=== PATIENT | female | born 1940 | race Caucasian/White ===

== ENCOUNTER 2019-02-03 16:51 | Inpatient (IN) | payer MEDICARE, OTHER ==
[~2019-02-03] VITALS: Ht 167.6 cm; Wt 114.8 kg
[~2019-02-03 16:51] MED LIST: ADVAIR 100-501 EACH INH; CEFUROXIME250 MG PO; FUROSEMIDE40 MG PO; HYDROCODON-ACE1 EACH PO; LOSARTAN POTASS25 MG PO; OMEPRAZOLE20 M1 PO; PREDNISONE10 MG PO; WARFARIN SODIUM2 MG PO
[2019-02-03] MEDS ORDERED: IPRATROPIUM BROMIDE 0.02% 2.5 ML NEB NEB STA (16:59)
[2019-02-03] MEDS ORDERED: ALBUTEROL SULF 0.083% NEB SOLN 3 ML NEB NEB STA ×2 (16:59→20:32)
[2019-02-03] MEDS ORDERED: SODIUM CHLORIDE FLUSH 10 ML SYR INJ PRN ×2 (17:00→19:00)
[2019-02-03] MEDS ORDERED: NITROGLYCERIN 2% OINT 1 GM PKT TOP ONE (17:15)
[2019-02-03] MEDS ORDERED: ACETAMINOPHEN 325 MG TAB PO NR (17:30)
[2019-02-03] MEDS ORDERED: FUROSEMIDE INJ 10 MG/ML 4 ML VIAL IV NR (17:30)
--- NOTE | 2019-02-03 17:45 | Diagnostic Imaging Report ---
EXAMINATION: CHEST SINGLE (PORTABLE) COMPARISON: None INDICATION: Shortness of breath on exertion ^SOB ^[id number] ^1725 DISCUSSION: Frontal view of the chest obtained at 1726 hours. HEART AND MEDIASTINUM: The heart is mildly enlarged. The aorta is tortuous. Pulmonary veins are mildly prominent. LINES: None. LUNGS: The lungs are diffusely hyperinflated suggestive of small airways disease. No pneumonia or pulmonary edema. PLEURA: No pleural effusion or pneumothorax. BONES AND SOFT TISSUES: No focal osseous lesion. The soft tissues are normal. IMPRESSION: Pulmonary hyperinflation suggestive of small airways disease. Mild cardiomegaly and pulmonary venous hypertension. Signed by: Dr. Guru Zee MD on 02/03/2019 5:42 PM
[2019-02-03] MEDS ORDERED: ASPIRIN 81 MG CHEW TAB PO ONE (18:00)
[2019-02-03 18:11] LABS: ALANINE AMINOTRANSFERASE 28 IU/L (0-55); ALBUMIN 3.7 g/dL (3.5-5.0); ALBUMIN/GLOBULIN RATIO 1.2 (0.8-2.0); ALKALINE PHOSPHATASE 92 IU/L (40-150); BLOOD UREA NITROGEN 11 mg/dL (7-26); BUN/CREATININE RATIO 13 (6-25); CALCIUM 9.5 mg/dL (8.4-10.2); CARBON DIOXIDE 18 mmol/L (22-29); CHLORIDE 106 mmol/L (98-107); CREATINE KINASE 182 IU/L (29-168); CREATININE, SERUM 0.86 mg/dL (0.57-1.11); EST GLOMERULAR FILTRATION RATE > 60 ML/MIN (60-); GLUCOSE 162 mg/dL (74-118); SODIUM 136 mmol/L (136-145)
--- OUTSIDE RECORDS SUMMARY | 2019-02-03 19:42 | XMS REPORT ---
Author Author [facility] Address Unknown Phone Unavailable Care Team Providers Care Field Cane Scaler Helper Name Role Phone Sharyn WILSON Unavailable Unavailable Problems This patient has no known problems. Allergies, Adverse Reactions, Alerts This patient has no known allergies or adverse reactions. Medications This patient has no known medications. Results Test Description Test Time Test Comments Text Results Atomic Results Result Comments CHEST SINGLE (PORTABLE) 2019-02-03 17:40:00 [facility] [address] [address] Patient Name: ROBYN GONZALEZ MR #: [id number] : 1940 Age/Sex: 78/F Req #: [id number] Adm Physician: Ordered by: DANIELE WILSON MD Report #: [id number] Location: ER Room/Bed: Procedure: [id number] DX/CHEST SINGLE (PORTABLE) Exam Date: 02/03/19 Exam Time: 1725 REPORT STATUS: Signed EXAMINATION: CHEST SINGLE (PORTABLE) COMPARIS ON: None INDICATION: Shortness of breath on exertion SOB [id number] 1725 DISCUSSION: Frontal view of the chest obtained at 1726 hours. HEART AND MEDIASTINUM: The heart is mildly enlarged. The aorta is tortuous. Pulmonary veins are mildly prominent. LINES: None. LUNGS: The lungs are diffusely hyperinflated suggestive of small airways disease. No pneumonia or pulmonary edema. PLEURA: No pleural effusion or pneumothorax. BONES AND SOFT TISSUES: No focal osseous lesion. The soft tissues are normal. IMPRESSION: Pulmonary hyperinflation suggestive of small airways disease. Mild cardiomegaly and pulmonary venous hypertension. Signed by: Dr. Caty Zee MD on 02/03/2019 5:42 PM Dictated By: CATY ZEE MD 41 Transcribed By: MASNI on 02/03/191741 COPY TO: DANIELE WILSON MD
[2019-02-03 20:25] LABS: BASOPHILS # (AUTO) 0.1 (0.0-0.1); BASOPHILS % 0.5 % (0.0-1.0); EOSINOPHILS % 0.1 % (0.0-6.0); HEMATOCRIT 40.6 % (34.2-44.1); HEMOGLOBIN 13.6 g/dL (12.0-16.0); LYMPHOCYTES # (AUTO) 0.5 (1.0-3.2); LYMPHOCYTES % 5.3 % (18.0-39.1); MEAN CORPUSCULAR HEMOGLOBIN 31.3 pg (28-32); MEAN CORPUSCULAR HGB CONC 33.5 g/dL (31-35); MEAN CORPUSCULAR VOLUME 93.5 fL (81-99); MONOCYTES # (AUTO) 0.9 (0.2-0.8); MONOCYTES % 9.3 % (4.4-11.3); NEUTROPHILS # (AUTO) 7.8 (2.1-6.9); NEUTROPHILS % 84.5 % (38.7-80.0); PLATELET COUNT 213 x10e3/uL (140-360); RED BLOOD COUNT 4.34 x10e6/uL (3.6-5.1); RED CELL DISTRIBUTION WIDTH 12.4 % (11.7-14.4)
[2019-02-03 20:40] VITALS: BP 132/77
[2019-02-03] MEDS ORDERED: IPRATROPIUM BROMIDE 0.02% 2.5 ML NEB NEB ONE (20:45)
[2019-02-03 20:46] LABS: CREATINE KINASE MB 2.5 ng/mL (0-5.0)
[2019-02-03 21:08] VITALS: BP 132/77
--- NOTE | 2019-02-03 21:40 | NUR ---
PATIENT ARRIVED TO THE UNIT VIA STRETCHER ACCOMPANIED BY HER . RECEIVED REPORT FROM ASHWIN, ER NURSE. PATIENT ARRIVED TO THE UNIT WITH EXPIRATORY WHEEZING AND REQUESTING TO HAVING A PURIWICK PLACED BECAUSE SHE NEEDS TO PEE DUE TO THE LASIX SHE RECEIVED IN ER. PATIENT IS IN NO PAIN. PATIENT IS A&OX3.
[2019-02-03 22:00] VITALS: BP 132/77
--- NOTE | 2019-02-03 22:50 | NUR ---
CALLED AND TALKED TO DR. ARDON, WHO IS COVERING FOR DR. Merced LAU. TOLD DR. ARDON THAT THERE WAS A ONE TIME ORDER FOR NEB TREATMENT AND THE PATIENT IS HAVING EXPIRATORY WHEEZING AND THE WHEEZING CAN BE HEARD WITH AND WITHOUT THE STETHOSCOPE. DR. ARDON ORDERED A CONSULT TO DR. WILSON AND ALUTEROL Q12 PRN AND ALBUTEROL Q4 SCHEDULE.
[2019-02-03] MEDS ORDERED: ALBUTEROL SULF 0.083% NEB SOLN 3 ML NEB NEB PRN (23:00)
[2019-02-03] MEDS: ALBUTEROL SULF 0.083% NEB SOLN 3 ML NEB NEB SCH (23:00)
--- NOTE | 2019-02-03 23:30 | NUR ---
CALLED AND TALKED TO DR. WILSON ABOUT THE CONSULT FOR THE PATIENT AND THE ORDERS DR. ARDON GAVE. DR. WILSON SAID HE WILL COME SEE THE PATIENT TONIGHT
[2019-02-04] VITALS (8 sets, daily range): BP systolic 109–182; BP diastolic 57–80
[2019-02-04] MEDS ORDERED: POTASSIUM CHLORIDE 20 MEQ TAB CR PO STA (00:39)
--- NOTE | 2019-02-04 00:41 | NUR ---
pulmonary [id number] thanks.
--- NOTE | 2019-02-04 03:03 | Consultation ---
DATE OF CONSULTATION: 02/03/2019 Pulmonary Medicine Consult REASON FOR REFERRAL: Shortness of breath. HISTORY OF PRESENT ILLNESS: Ms. Coe is a pleasant 78-year-old female with shortness of breath, onset for two days. Worse with exertion. While it was getting worse for a couple days, the has been noticing a chronic worsening over the last year. The patient came to the emergency room. In the ER, labs were done including a BNP level of 589. Troponin 0.063, CK-MB 2.50. Chest x-ray with some venous hyperemia, mild hyperinflation. Over the first hospital day, the patient not noticeably better at all. Therefore, I am consulted. The patient reportedly has asthma for 10 years that was diagnosed. She does not have any subjective improvement to bronchodilators that she knows of. Some allergies. No GERD. No known FREDERICK. The patient at baseline not on any active respiratory medications. The patient's baseline exercise tolerance is two rooms distance, limited by dyspnea. She uses a walker. 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 The patient denies dysphagia or speaking difficulty. Hypertension. Diabetes. Weakness/debility. Hysterectomy. Allergies. MEDICATIONS: Medication list reviewed per the chart record. ALLERGIES: SULFA. SOCIAL HISTORY: No smoking. No drinking. No drugs. The patient was a school bus mechanic for 28 years. FAMILY HISTORY: Noncontributory. REVIEW OF SYSTEMS: GENERAL: Generally, no weight changes. OPHTHALMOLOGIC: No double vision. ENT: No mouth ulcers. ENDOCRINE: No known thyroid disease. PULMONARY: No hemoptysis. CARDIAC: No VA. GI: No diarrhea. : No blood in urine. NEUROLOGIC: No seizures. DERMATOLOGIC: No rashes. OBJECTIVE: VITAL SIGNS: Afebrile, vital signs noted and reviewed per the chart record. Upon presentation, her blood pressure is 169/82 with a heart rate of 59 into the hospital. GENERAL: No acute distress, alert and oriented x3. HEENT: Normocephalic and atraumatic. NECK: Supple. Throat midline. LUNGS: Bilateral air entry is moderate, clear. CARDIOVASCULAR: S1, S2. No murmurs, rubs, or gallops. ABDOMINAL: Soft and nontender. EXTREMITIES: No clubbing, no cyanosis. There is 1+ edema to the legs. INTEGUMENT: No rash. No purpura. LABORATORY DATA: Nine white count, 41 hematocrit, and 213 platelets. Eighteen bicarbonate, 11 BUN, and 0.86 creatinine. LFTs mostly unremarkable. IMPRESSION AND PLAN: 1. Treat for congestive heart failure exacerbation, acute. Ejection fraction unknown for now. 2. Abnormal chest radiography, possible pneumonitis. 3. Chronic bronchitis. 4. Reported asthma. 5. Obesity, possible obstructive sleep apnea or obesity hypoventilation. 6. History of cerebrovascular accident with no definite dysphagia nor aphasia per patient report in those instances. 7. Junctional rhythm, suspect atrial fibrillation underlying. 8. Hypertension. 9. Diabetes. 10. Hyperlipidemia. 11. Debility/weakness. Continue diuresis, repeat chest x-ray serially to ensure improvement. Reasonable to withhold antibiotics and see if there is quick radiographic improvement or else may give a trial of antibiotics. Cardiac medications per Cardiology. ejection fraction. Check thyroid screening, lipid screening. Bronchodilators, like steroids. Ensure she can expectorate. Thank you very much, Dr. Clark for this consult. Please call for questions. MD PAOLO Johnson/MODL /[id number]
[2019-02-04] MEDS: ALBUTEROL SULF 0.083% NEB SOLN 3 ML NEB NEB SCH ×6 (03:15→23:00)
[2019-02-04 05:43] LABS: ANION GAP 14.9 mmol/L (8-16); CALCIUM 9.6 mg/dL (8.4-10.2); CHOL/HDL RATIO 2.4 (3.0-3.6); CREATININE, SERUM 0.95 mg/dL (0.57-1.11); MAGNESIUM 2.1 MG/DL (1.3-2.1); POTASSIUM 3.9 mmol/L (3.5-5.1)
[2019-02-04 06:05] LABS: FREE THYROXINE INDEX 2.6784 (1.4-3.8); THYROID STIMULATING HORMONE 1.286 uIU/mL (0.350-4.940)
[2019-02-04 06:08] LABS: CREATINE KINASE MB 2.9 ng/mL (0-5.0)
--- NOTE | 2019-02-04 07:11 | NUR ---
GAVE REPORT TO ONCOMING NURSE. CALL LIGHT WITHIN REACH. PATIENT IN BED. AT BEDSIDE
[2019-02-04] MEDS: BUDESONIDE 0.5MG/2 ML NEB INH SCH ×2 (07:18→20:05)
[2019-02-04] MEDS: FUROSEMIDE INJ 10 MG/ML 4 ML VIAL IV SCH ×2 (08:13→16:46)
[2019-02-04] MEDS: LISINOPRIL 10 MG TAB PO SCH (08:13)
[2019-02-04] MEDS ORDERED: ACETAMINOPHEN 325 MG TAB PO PRN (08:30)
[2019-02-04] MEDS ORDERED: CEFEPIME HCL 1 GM VIAL IV SCH (11:00)
[2019-02-04] MEDS: CEFEPIME 1GM/NS 0.9% 50 ML 50 ML IV SCH (12:00)
[2019-02-04] MEDS ORDERED: SODIUM CHLORIDE 0.9% 250ML 250 ML ONE (12:05)
[2019-02-04] MEDS: AZITHROMYCIN 500MG/NS 250 ML 250 ML IV SCH (12:52)
[2019-02-04 15:04] LABS: CREATINE KINASE MB 2.7 ng/mL (0-5.0)
[2019-02-04] MEDS: NYSTATIN 15 GM POWDER UD BTL TOP SCH (16:46)
[2019-02-04] MEDS: ENOXAPARIN SOD INJ 40 MG/0.4 ML SYR SC SCH (16:46)
--- NOTE | 2019-02-04 18:00 | NUR ---
0 s/s of acute distress noted. Pt was medicated for fever this evening and continues on IV antibiotics. Dr. Coleman was here to see pt and no new orders received.
--- NOTE | 2019-02-04 19:10 | NUR ---
Patient visited in room during nursing rounds. Patient alert and oriented x3. On scheduled breathing treatment and IV antibiotics. Chronic A-fib on telemetry. Purewick in place draining urine sufficiently into canister. Up with assist and with walker prn. Call callahan within reach.
--- NOTE | 2019-02-04 22:30 | Consultation ---
DATE OF CONSULTATION: Cardiology Consultation HISTORY OF PRESENT ILLNESS: This is a 78-year-old woman with a history of asthma, hypertension, diabetes mellitus, and obesity, who presented to the emergency department with worsening shortness of breath. She states that last two days she had been progressively more short of breath, occurred at rest, worse with supine position, associated with sputum production and wheezing. Upon arrival here, she was noted to have mild pulmonary vascular congestion and elevated BNP. REVIEW OF SYSTEMS: A 12-point review of system was conducted, is negative except as stated above in the HPI. PAST MEDICAL HISTORY: As stated above in the HPI. PAST SURGICAL HISTORY: Hysterectomy. PAST FAMILY HISTORY: Noncontributory. SOCIAL HISTORY: No illicit drug, alcohol, or tobacco use. ALLERGIES: SULFA. MEDICATIONS: See medications reconciliation form. PHYSICAL EXAMINATION: VITAL SIGNS: Temperature is 96.5, heart rate is 56, respirations are 20, blood pressure is 142/73, oxygen saturation is 97% on 2 L nasal cannula. GENERAL: Well-appearing no apparent distress. Alert and oriented x3. HEAD: Normocephalic, atraumatic. Eyes, the extraocular muscles are intact. Conjunctivae clear. NECK: No JVD. No bruits. CARDIOVASCULAR: She is bradycardic. Regular rhythm with ectopy. No murmurs. LUNGS: Scattered wheezes throughout bilateral lung abbott. ABDOMEN: Soft, nontender, nondistended. EXTREMITIES: Trace edema. VASCULAR: 2+ pulses. SKIN: Warm, dry intact. NEUROLOGIC: No focal deficits noted. LABORATORY DATA: Shows a creatinine of 0.95. Normal troponin x3. BNP is 694. Chest x-ray shows pulmonary hyperinflation suggestive of small airway disease with mild cardiomegaly and pulmonary venous congestion. A 12-lead electrocardiogram showed sinus rhythm with premature ventricular complexes. IMPRESSION: 1. Shortness of breath. 2. Asthma and bronchitis. 3. Diastolic heart failure. 4. Abnormal electrocardiogram. 5. Premature ventricular complexes. 6. Obesity. RECOMMENDATIONS: Continue diuresis. Her echocardiogram was technically difficult with limited images. Overall ejection fraction is within normal limits with normal valves. Continue pulmonary workup for her reactive airway disease. She has been started on antibiotics. Continue to monitor closely on telemetry. DO KALYN Morrissey/SHAJIL /[id number]
[2019-02-05] MEDS: CEFEPIME 1GM/NS 0.9% 50 ML 50 ML IV SCH ×2 (00:42→12:48)
--- NOTE | 2019-02-05 02:24 | NUR ---
Pulmonary Medicine DATE 02/04/2019 SUBJECTIVE: 1 L/min oxygen Initial echo preliminary with ~normal lvef mild responsiveness to bronchodilators still sob REVIEW OF SYSTEMS: No bleeding, No rashes. OBJECTIVE: VITAL SIGNS: vital signs noted and reviewed per the chart record. GENERAL: No acute distress, alert and oriented x3. HEENT: Normocephalic and atraumatic. NECK: Supple. Throat midline. LUNGS: Bilateral air entry is moderate, clear. CARDIOVASCULAR: S1, S2. No murmurs, rubs, or gallops. ABDOMINAL: Soft and nontender. EXTREMITIES: No clubbing, no cyanosis. 1+ edema in legs. INTEGUMENT: No rash. No purpura. LABORATORY DATA: k 3.9, cr 0.95 IMPRESSION AND PLAN: 1. Treat for congestive heart failure exacerbation, acute. Diastolic 2. Abnormal chest radiography, possible pneumonitis. 3. Chronic bronchitis. 4. Reported asthma. 5. Obesity, possible obstructive sleep apnea or obesity hypoventilation. 6. History of cerebrovascular accident with no definite dysphagia nor aphasia per patient report in those instances. 7. Junctional rhythm, suspect atrial fibrillation underlying. 8. Hypertension. 9. Diabetes. 10. Hyperlipidemia. 11. Debility/weakness. Continue diuresis Cardiac medications Repeat chest x-ray serially to ensure improvement. trial of antibiotics. Continue bronchodilators, light steroids. Ensure she can expectorate. Thank you very much, Dr. Clark for this consult. Please call for questions.
[2019-02-05] MEDS: ALBUTEROL SULF 0.083% NEB SOLN 3 ML NEB NEB SCH ×4 (03:00→15:20)
[2019-02-05 05:04] VITALS: BP 132/71
--- NOTE | 2019-02-05 06:25 | Diagnostic Imaging Report ---
EXAMINATION: CHEST SINGLE (PORTABLE) INDICATION: ^chf ^[id number] ^0515 COMPARISON: 02/03/2019 FINDINGS: AP view TUBES and LINES: None. LUNGS: Limited by body habitus. Lungs are well inflated. There is no evidence of pneumonia or pulmonary edema. PLEURA: No visible pneumothorax. Obscuration of the left costophrenic angle. HEART AND MEDIASTINUM: The cardiomediastinal silhouette is enlarged. BONES AND SOFT TISSUES: No acute osseous lesion. Soft tissues are unremarkable. UPPER ABDOMEN: No free air under the diaphragm. IMPRESSION: Enlarged cardiomediastinal silhouette, unchanged. Trace left pleural effusion versus atelectasis/scarring. Signed by: Dr. Tang Mars MD on 02/05/2019 6:22 AM
[2019-02-05] MEDS: BUDESONIDE 0.5MG/2 ML NEB INH SCH (06:49)
--- NOTE | 2019-02-05 07:08 | NUR ---
pt alert resp even and unlabored at this time no distress noted, pt sitting upright in bed, pt able to make needs known, pt has no complaint of pain when asked, call light in reach.
[2019-02-05 07:33] VITALS: BP 148/65
[2019-02-05 08:28] VITALS: BP 148/65
[2019-02-05] MEDS: FUROSEMIDE INJ 10 MG/ML 4 ML VIAL IV SCH (08:49)
[2019-02-05] MEDS: LISINOPRIL 10 MG TAB PO SCH (08:49)
[2019-02-05] MEDS: NYSTATIN 15 GM POWDER UD BTL TOP SCH ×2 (08:54→17:51)
[2019-02-05 11:54] VITALS: BP 135/69
[2019-02-05] MEDS ORDERED: PREDNISONE10 MG PO (12:35)
[2019-02-05] MEDS: AZITHROMYCIN 500MG/NS 250 ML 250 ML IV SCH (13:00)
[2019-02-05 15:44] VITALS: BP 145/67
--- NOTE | 2019-02-05 15:46 | NUR ---
Dr. Cohen notified that patient does not qualify for home o2. Per Dr. Cohen he is OK with patient discharging home from pulmonary standpoint and said his office will call the patient to schedule follow up appointment.
--- NOTE | 2019-02-05 17:15 | NUR ---
courtesy call to Dr. Coleman of pt discharge.
[2019-02-05] MEDS ORDERED: FUROSEMIDE 40 MG TAB PO SCH (17:30)
[2019-02-05] MEDS ORDERED: WARFARIN SOD 2 MG TAB PO NR (17:45)
[2019-02-05] MEDS: ENOXAPARIN SOD INJ 40 MG/0.4 ML SYR SC SCH (17:51)
--- NOTE | 2019-02-05 17:57 | NUR ---
recall to Dr. Dickens , Dr Giuliano Rasheed cotton grader, Dr. dickens seen pt today . pt has discharge orders.
--- NOTE | 2019-02-05 18:47 | NUR ---
pt discharged home, prescriptions given, pt was medications on there medications, iv site removed, no swelling no redness to site.
--- NOTE | 2019-02-05 19:33 | Progress Note ---
DATE: Cardiology Progress Note SUBJECTIVE: The patient reports that her shortness of breath has improved with some relief. OBJECTIVE: VITAL SIGNS: Temperature is 98.9, heart rate is 77, respirations are 18, blood pressure is 145/67, oxygen saturation is 97% on 2 L nasal cannula. GENERAL: She is an elderly woman, lying comfortably in bed, no apparent distress. CARDIOVASCULAR: She is irregularly irregular with ectopy. LUNGS: Scattered rhonchi and wheezes. ABDOMEN: Soft, nontender, nondistended. EXTREMITIES: Trace edema. CARDIOVASCULAR MEDICATIONS: Reviewed, none from today. TELEMETRY: Monitoring revealed episodes of atrial fibrillation. ASSESSMENT: 1. Paroxysmal atrial fibrillation. 2. Shortness of breath. 3. Asthma and bronchitis. 4. Diastolic heart failure. 5. Premature ventricular complexes. 6. Obesity. PLAN: Continue diuresis and monitor her creatinine and ins and outs. She is on antibiotics for possible pneumonia. Continue bronchodilators per Pulmonary. Continue to monitor on telemetry. The patient was on warfarin at home for history of stroke and presumed paroxysmal atrial fibrillation. Restart warfarin and recheck INRs to ensure therapeutic doses. Inocencio Coleman DO BM/MODL /[id number]
--- NOTE | 2019-02-06 05:01 | NUR ---
Pulmonary Medicine DATE 02/05/2019 SUBJECTIVE: 2 L/min oxygen ambulated-- patient didnt qualify for home o2 lowest sat 94% eating REVIEW OF SYSTEMS: No bleeding, No rashes. OBJECTIVE: VITAL SIGNS: vital signs noted and reviewed per the chart record. GENERAL: No acute distress, alert and oriented x3. HEENT: Normocephalic and atraumatic. NECK: Supple. Throat midline. LUNGS: Bilateral air entry is moderate, clear. CARDIOVASCULAR: S1, S2. No murmurs, rubs, or gallops. ABDOMINAL: Soft and nontender. EXTREMITIES: No clubbing, no cyanosis. 1+ edema in legs. INTEGUMENT: No rash. No purpura. LABORATORY DATA: no new updates IMPRESSION AND PLAN: 1. Treat for congestive heart failure exacerbation, acute. Diastolic 2. Abnormal chest radiography, possible pneumonitis. 3. Chronic bronchitis. 4. Reported asthma. 5. Obesity, possible obstructive sleep apnea or obesity hypoventilation. 6. History of cerebrovascular accident with no definite dysphagia nor aphasia per patient report in those instances. 7. Junctional rhythm, suspect atrial fibrillation underlying. 8. Hypertension. 9. Diabetes. 10. Hyperlipidemia. 11. Debility/weakness. Continue diuresis Cardiac medications Repeat chest x-ray serially to ensure improvement. trial of antibiotics. change to PO Continue bronchodilators, light steroids. Ensure she can expectorate. Ambulate, if good she can be discharged. D/w patient in presence of daughter Thank you very much, Dr. Clark for this consult. Please call for questions.
== END 2019-02-05 18:46 | disposition home or self-care (01) | DRG 291 ==
LOC: ER 16:51 → ERHOLD 19:39 → MED/SURG2 20:22
DX: I11.0 Hypertensive heart disease with heart failure (principal); I50.21 Acute systolic (congestive) heart failure; Z68.41 Body mass index [BMI] 40.0-44.9, adult; J45.901 Unspecified asthma with (acute) exacerbation; E11.9 Type 2 diabetes mellitus without complications; I48.0 Paroxysmal atrial fibrillation; E66.01 Morbid (severe) obesity due to excess calories; G47.33 Obstructive sleep apnea (adult) (pediatric); Z86.73 Personal history of transient ischemic attack (TIA), and cerebral infarction without residual deficits
CPT/HCPCS: 36415; 71045; 80048; 80053; 80061; 82550; 82553; 83735; 83880; 84436; 84443; 84479; 84484; 85025; 85379; 93005; 93306; 94640; 97139; 99284; J0456; J0692; J1650; J1940; J7050

== ENCOUNTER 2020-03-31 16:27 | Inpatient (IN) | payer MEDICARE, OTHER ==
[~2020-03-31] VITALS: Ht 167.6 cm; Wt 114.8 kg
[2020-03-31 17:31] LABS: BASOPHILS # (AUTO) 0.1 (0.0-0.1); BASOPHILS % 0.8 % (0.0-1.0); EOSINOPHILS # (AUTO) 0.4 (0.0-0.4); HEMATOCRIT 41.4 % (34.2-44.1); HEMOGLOBIN 13.4 g/dL (12.0-16.0); LYMPHOCYTES # (AUTO) 1.4 (1.0-3.2); LYMPHOCYTES % 19.2 % (18.0-39.1); MEAN CORPUSCULAR HEMOGLOBIN 31.2 pg (28-32); MEAN CORPUSCULAR HGB CONC 32.4 g/dL (31-35); MEAN CORPUSCULAR VOLUME 96.3 fL (81-99); MONOCYTES # (AUTO) 0.6 (0.2-0.8); MONOCYTES % 7.5 % (4.4-11.3); NEUTROPHILS % 67.2 % (38.7-80.0); PLATELET COUNT 214 x10e3/uL (140-360); RED CELL DISTRIBUTION WIDTH 12.8 % (11.7-14.4)
[2020-03-31 17:51] LABS: ALBUMIN 3.7 g/dL (3.5-5.0); ALBUMIN/GLOBULIN RATIO 1.3 (0.8-2.0); ANION GAP 15.3 mmol/L (8-16); CREATININE, SERUM 1.1 mg/dL (0.57-1.11); POTASSIUM 4.3 mmol/L (3.5-5.1)
[2020-04-01 06:32] LABS: BASOPHILS # (AUTO) 0.1 (0.0-0.1); BASOPHILS % 1.2 % (0.0-1.0); EOSINOPHILS # (AUTO) 0.6 (0.0-0.4); EOSINOPHILS % 7.7 % (0.0-6.0); HEMATOCRIT 41.3 % (34.2-44.1); HEMOGLOBIN 13.4 g/dL (12.0-16.0); LYMPHOCYTES # (AUTO) 1.6 (1.0-3.2); MEAN CORPUSCULAR HEMOGLOBIN 31.3 pg (28-32); MEAN CORPUSCULAR HGB CONC 32.4 g/dL (31-35); MEAN CORPUSCULAR VOLUME 96.5 fL (81-99); MONOCYTES # (AUTO) 0.7 (0.2-0.8); MONOCYTES % 9.6 % (4.4-11.3); NEUTROPHILS # (AUTO) 4.5 (2.1-6.9); NEUTROPHILS % 60.2 % (38.7-80.0); PLATELET COUNT 193 x10e3/uL (140-360); RED BLOOD COUNT 4.28 x10e6/uL (3.6-5.1); RED CELL DISTRIBUTION WIDTH 12.7 % (11.7-14.4)
[2020-04-01 07:08] LABS: ANION GAP 13.1 mmol/L (8-16); BLOOD UREA NITROGEN 15 mg/dL (7-26); BUN/CREATININE RATIO 17 (6-25); CALCIUM 8.9 mg/dL (8.4-10.2); CARBON DIOXIDE 24 mmol/L (22-29); CHLORIDE 109 mmol/L (98-107); CREATININE, SERUM 0.86 mg/dL (0.57-1.11); EST GLOMERULAR FILTRATION RATE > 60 ML/MIN (60-); GLUCOSE 108 mg/dL (74-118); POTASSIUM 4.1 mmol/L (3.5-5.1); SODIUM 142 mmol/L (136-145)
[2020-04-01] MEDS ORDERED: ALBUTEROL/IPRATROPIUM 3 ML NEB NEB PRN (13:00)
[2020-04-01] MEDS ORDERED: FUROSEMIDE INJ 10 MG/ML 4 ML VIAL IV ONE (13:45)
[2020-04-01 14:40] LABS: INR 2.24; PARTIAL THROMBOPLASTIN TIME 39.3 seconds (23.8-35.5); PROTHROMBIN TIME 26.6 seconds (11.9-14.5)
[2020-04-01] MEDS ORDERED: MIDAZOLAM HCL 2 MG/2 ML VIAL ONE (14:53)
[2020-04-01] MEDS ORDERED: FENTANYL CITRATE/PF 100MCG/2 ML INJ ONE (14:53)
[2020-04-01] MEDS ORDERED: SODIUM CHLORIDE 0.9% 1000ML 2,000 ML ONE (14:54)
[2020-04-01] MEDS ORDERED: SODIUM CHLORIDE 0.9% 500ML 500 ML ONE (14:54)
[2020-04-01] MEDS ORDERED: LIDOCAINE HCL 2% LOCAL 20 ML VIAL ONE ×2 (14:54→15:12)
[2020-04-01] MEDS ORDERED: VANCOMYCIN 1GM/NS 250 ML 250 ML ONE ×2 (14:54→15:23)
[2020-04-01] MEDS ORDERED: MORPHINE SULFATE INJ 2 MG/ML SYR IV PRN (17:15)
[2020-04-01 17:37] VITALS: BP 194/117
[2020-04-01] MEDS: FUROSEMIDE INJ 10 MG/ML 4 ML VIAL IV SCH (18:00)
[2020-04-01 18:11] VITALS: BP 194/117
[2020-04-01 20:00] VITALS: BP 144/57
[2020-04-01 21:00] VITALS: BP 144/57
[2020-04-01] MEDS: CEFUROXIME AXETIL 250 MG TAB PO SCH ×2 (21:00→21:45)
[2020-04-01] MEDS: SALMETEROL/FLUTICASONE 100/50 INH SCH (23:55)
[2020-04-02] VITALS (8 sets, daily range): BP systolic 118–169; BP diastolic 50–90
[2020-04-02] MEDS: SALMETEROL/FLUTICASONE 100/50 INH SCH ×2 (08:45→19:50)
[2020-04-02] MEDS: CEFUROXIME AXETIL 250 MG TAB PO SCH ×2 (08:46→20:30)
[2020-04-02] MEDS: FUROSEMIDE INJ 10 MG/ML 4 ML VIAL IV SCH ×2 (08:46→19:49)
[2020-04-02] MEDS ORDERED: FUROSEMIDE 40 MG TAB PO SCH (09:00)
[2020-04-02] MEDS ORDERED: LOSARTAN POTASSIUM 25 MG TAB PO SCH (09:00)
== END 2020-04-02 22:25 | disposition home or self-care (01) | DRG 243 ==
LOC: ER 17:30 → ERHOLD 18:41 → MED/SURG2 04-01 16:43
PROC: 0JH604Z Insertion of Pacemaker, Single Chamber into Chest Subcutaneous Tissue and Fascia, Open Approach (ICD-10-PCS; principal; 2020-04-01)
PROC: 02HK3JZ Insertion of Pacemaker Lead into Right Ventricle, Percutaneous Approach (ICD-10-PCS; 2020-04-01)
DX: I49.5 Sick sinus syndrome (principal); I48.20 Chronic atrial fibrillation, unspecified; I50.32 Chronic diastolic (congestive) heart failure; I44.2 Atrioventricular block, complete; I11.0 Hypertensive heart disease with heart failure; Z95.5 Presence of coronary angioplasty implant and graft; Z88.2 Allergy status to sulfonamides; Z86.73 Personal history of transient ischemic attack (TIA), and cerebral infarction without residual deficits; J44.9 Chronic obstructive pulmonary disease, unspecified; I25.10 Atherosclerotic heart disease of native coronary artery without angina pectoris; Z20.822 Contact with and (suspected) exposure to COVID-19
CPT/HCPCS: 33207; 36415; 71045; 80048; 80053; 83880; 84484; 85025; 85610; 85730; 93005; 94664; 99152; 99153; 99284; C1786; C1898; J1940; J2001; J2250; J3010; J3370; J7030; J7040; U0002

== ENCOUNTER 2022-01-28 09:29 | Emergency (ER) | payer MEDICARE ==
[~2022-01-28] VITALS: Ht 167.6 cm; Wt 114.8 kg
[2022-01-28] MEDS ORDERED: CLINDAMYCIN HC150 MG PO (12:16)
[2022-01-28] MEDS ORDERED: MUPIROCIN22 GM TOP (12:16)
[2022-01-28 12:36] VITALS: BP 130/79
== END 2022-01-28 12:40 | disposition home or self-care (01) ==
LOC: ER 09:38
DX: L03.116 Cellulitis of left lower limb (principal); I10 Essential (primary) hypertension; E78.5 Hyperlipidemia, unspecified; Z86.73 Personal history of transient ischemic attack (TIA), and cerebral infarction without residual deficits; Z95.820 Peripheral vascular angioplasty status with implants and grafts; Z95.810 Presence of automatic (implantable) cardiac defibrillator
CPT/HCPCS: 93971; 99283